=== PATIENT | female | born 1965 | race Hispanic/Latino ===

== ENCOUNTER 2019-06-29 15:53 | Emergency (ER) | payer OTHER ==
[~2019-06-29] VITALS: Ht 165.1 cm; Wt 74.8 kg
--- OUTSIDE RECORDS SUMMARY | 2019-06-29 15:56 | XMS REPORT ---
Author Author [facility] Address Unknown Phone Unavailable Care Team Providers Care Follow Up Manager Name Role Phone Unavailable Unavailable Problems This patient has no known problems. Allergies, Adverse Reactions, Alerts This patient has no known allergies or adverse reactions. Medications This patient has no known medications.
[2019-06-29] MEDS ORDERED: ONDANSETRON HCL 4 MG ORAL DISINTEGRATING TAB ONE (16:26)
[2019-06-29] MEDS ORDERED: ACETAMINOPHEN/CODEINE 300MG - 30MG TAB ONE (16:26)
[2019-06-29] MEDS ORDERED: ACETAMINOPHEN/CODEINE ELIX 120-12 MG/5 ML UDC PO ONE (16:30)
[2019-06-29] MEDS ORDERED: TAMIFLU75 MG PO (17:26)
[2019-06-29] MEDS ORDERED: TYLENOL WITH C1 EACH PO (17:26)
[2019-06-29 17:48] VITALS: BP 134/78
== END 2019-06-29 17:48 | disposition home or self-care (01) ==
LOC: ER 15:53
DX: R50.9 Fever, unspecified (principal); J09.X2 Influenza due to identified novel influenza A virus with other respiratory manifestations
CPT/HCPCS: 87400; 99282; Q0162

== ENCOUNTER 2019-10-23 09:13 | Inpatient (IN) | payer OTHER ==
[~2019-10-23] VITALS: Ht 165.1 cm; Wt 66.4 kg
[~2019-10-23 09:13] MED LIST: TAMIFLU75 MG PO; TYLENOL WITH C1 EACH PO
--- OUTSIDE RECORDS SUMMARY | 2019-10-23 09:15 | XMS REPORT | Continuity of Care Document ---
Author Author [facility] t Organization [facility] Address [address] [place] [address] Phone Unavailable Care Team Providers Care Supervisor Yard Name Role Phone NONSTAFF PCP Unavailable Payers Payer Name Policy Type Policy Number Effective Date Expiration Date S marcia [facility] Ppo [id number] CH I [facility] Problems This patient has no known problems. Allergies, Adverse Reactions, Alerts This patient has no known allergies or adverse reactions. Medications Ordered Medication Name Filled Medication Name Start Date Stop Da te Current Medication? Ordering Clinician Indication Dosage Frequency Signature (SIG) Comments Components Source Acetaminophen With Codeine (Tylenol With Codeine #3 Ta blet) 1 Each Tablet Acetaminophen With Codeine (Tylenol With Codeine #3 Tablet) 1 Each Tablet 2019-06-29 00:00:00 Yes Ambica Sandhir Do 300 Every 6 Hours as needed for Cough [facility] Oseltamivir Phosphate (Tamiflu) 75 Mg Cap Oseltamivir Phosphate (Tamiflu) 75 Mg Cap 2019-06-29 00:00:00 Yes Ambica Sandhir Do 75 Twice A Day [facility] Procedures Procedure Date / Time Performed Performing Clinician [facility] e X-ray of chest, two views 2019-06-29 00:00:[address] [facility] Encounters Start Date/Time End Date/Time Encounter Type Admission Type Attendi [facility] Facility Care Department Encounter ID Source 2019-06-29 15:53:00 2019-06-29 17:48:00 Departed Emergency Room [facility] [id number] [facility] Results Test Description Test Time Test Comments Results Result Comments Source Influenza Virus Types A,B Antigen 2019-06-29 17:30:00 Test Item Influenza Virus Types A,B Antigen (test code = 90792-8) POSITIVE FLU A NEGATIVE H Results called to Dr. Hopper at 1722 on 06/29/19 by Master Louise. RB OK.Lacey berry called to Cherrie Johnston in infection control at 1722 on 06/29/19 by Master Louise.[facility]
[2019-10-23] MEDS ORDERED: SODIUM CHLORIDE 0.9% 1000ML 1,000 ML IV STA (09:42)
[2019-10-23] MEDS ORDERED: CEFEPIME 1GM/NS 0.9% 50 ML 50 ML IV STA (09:42)
--- NOTE | 2019-10-23 10:06 | Emergency Department Note ---
History of Present Illnes History of Present Illness Chief Complaint: COVID PUI History of Present Illness This is a 54 year old female arrives to ED with complaints of cough fever chills loss of taste. Patient states family has been tried going around [place] quite a bit and other family members are sick. Patient states she is concerned that she might have gone cope at 21. Chief Complaint Comment family s/s covid; pt states onset sunday s/s covid. today took tylenol 250mg for fever of 100.3. aaox4. ambulatory. nausea no vomitting. last period one year ago-premenopausal. non smoker. Historian: Patient Arrival Mode: Car Onset (how long ago): day(s) Radiation: non-radiation Severity: mild Duration (how long): day(s) Timing of current episode: constant Progression: worsening Chronicity: new Relieving factors: none Exacerbating factors: none Past Medical/Family History Physician Review I have reviewed the patient's past medical and family history. Any updates have been documented here. Past Medical History Recent Fever: Yes Clinical Suspicion of Infectio: Yes New/Unexplained Change in Ment: No Past Medical History: Chronic Back Pain Other Medical History: back and leg pain takes gabapentin Past Surgical History: None Other Surgery: eyes Social History Smoking Cessation: Never Smoker Alcohol Use: Social Family History Family history of heart diseas: Yes Review of Systems Review of Systems Constitutional: as per HPI, chills, fever EENTM: no symptoms Cardiovascular: no symptoms Respiratory: as per HPI, chest congestion, cough Gastrointestinal: no symptoms Genitourinary: no symptoms Musculoskeletal: no symptoms Neurological: no symptoms Psychological: no symptoms Endocrine: no symptoms Hematological/Lymphatic: no symptoms Review of other systems All other systems reviewed and negative. Physical Exam Related Data Allergies: Coded Allergies: No Known Drug Allergies (Verified Allergy, Mild, 05/08/10) hydrocodone (Verified Allergy, Unknown, 10/23/19) Triage Vital Signs Vital Signs Date Time Temp Pulse Resp B/P (MAP) Pulse Ox O2 Delivery O2 Flow Rate FiO2 10/23/19 09:33 100.9 133 18 122/71 98 Vital signs reviewed: Yes Physical Exam CONSTITUTIONAL Constitutional: well-developed, well-nourished HENT HENT: normocephalic, atraumatic, oropharynx clear/moist, nose normal HENT L/R: left ext ear normal, right ext ear normal EYES Eyes: PERRL, conjunctivae normal NECK Neck: ROM normal PULMONARY Pulmonary: effort normal, respiratory distress (mild tachypnea) CARDIOVASCULAR Cardiovascular: regular rhythm, heart sounds normal, capillary refill normal, normal rate GASTROINTESTINAL Abdominal: soft, nontender, bowel sounds normal GENITOURINARY Genitourinary: exam deferred SKIN Skin: warm, dry MUSCULOSKELETAL Musculoskeletal: ROM normal NEUROLOGICAL Neurological: alert, oriented x 3, no gross motor or sensory deficits PSYCHOLOGICAL Psychological: mood/affect normal, judgement normal Results Laboratory Lab results reviewed: Yes Laboratory comments Laboratory Tests Test 10/23/19 13:13 10/23/19 09:00 10/23/19 08:40 Urine Color Colorless (YELLOW) Urine Clarity Clear (CLEAR) Urine pH 6.5 (5 - 7) Urine Specific [place] 1.010 (1.010-1.025) Urine Protein Negative (NEGATIVE) Urine Glucose (UA) Negative (NEGATIVE) Urine Ketones Negative (NEGATIVE) Urine Blood Negative (NEGATIVE) Urine Nitrite Negative (NEGATIVE) Urine Bilirubin Negative (NEGATIVE) Urine Urobilinogen 0.2 mg/dL (0.2 - 1) Urine Leukocyte Esterase Negative (NEGATIVE) Urine RBC 0-5 /HPF (0-5) Urine WBC None /HPF (0-5) Urine Epithelial Cells Few /LPF (NONE) Urine Renal Epithelial Cells Rare (NONE) Urine Bacteria Rare /HPF (NONE) White Blood Count 5.39 x10e3/uL (4.8-10.8) Red Blood Count 4.40 x10e6/uL (3.6-5.1) Hemoglobin 13.3 g/dL (12.0-16.0) Hematocrit 39.4 % (34.2-44.1) Mean Corpuscular Volume 89.5 fL (81-99) Mean Corpuscular Hemoglobin 30.2 pg (28-32) Mean Corpuscular Hemoglobin Concent 33.8 g/dL (31-35) Red Cell Distribution Width 12.7 % (11.7-14.4) Platelet Count 121 x10e3/uL (140-360) Neutrophils (%) (Auto) 71.0 % (38.7-80.0) Lymphocytes (%) (Auto) 6.3 % (18.0-39.1) Monocytes (%) (Auto) 21.9 % (4.4-11.3) Eosinophils (%) (Auto) 0.0 % (0.0-6.0) Basophils (%) (Auto) 0.6 % (0.0-1.0) Neutrophils # (Auto) 3.8 (2.1-6.9) Lymphocytes # (Auto) 0.3 (1.0-3.2) Monocytes # (Auto) 1.2 (0.2-0.8) Eosinophils # (Auto) 0.0 (0.0-0.4) Basophils # (Auto) 0.0 (0.0-0.1) Absolute Immature Granulocyte (auto 0.01 x10e3/uL (0-0.1) Differential Total Cells Counted 100 Neutrophils % (Manual) 66 % (40-74) Band Neutrophils % 4 % Lymphocytes % (Manual) 10 % (19-48) Monocytes % (Manual) 20 % (3.4-9.0) Platelet Estimate Slightly decreased Platelet Morphology Comment Normal Red Cell Morphology Comment Normal Activated Partial Thromboplast Time 28.3 seconds (23.8-35.5) Sodium Level 139 mmol/L (136-145) Potassium Level 3.5 mmol/L (3.5-5.1) Chloride Level 101 mmol/L (98-107) Carbon Dioxide Level 26 mmol/L (22-29) Anion Gap 15.5 mmol/L (8-16) Blood Urea Nitrogen 7 mg/dL (7-26) Creatinine 0.71 mg/dL (0.57-1.11) Estimat Glomerular Filtration Rate > 60 ML/MIN (60-) BUN/Creatinine Ratio 10 (6-25) Glucose Level 102 mg/dL (74-118) Lactic Acid Level 0.6 mmol/L (0.5-2.0) Calcium Level 9.5 mg/dL (8.4-10.2) Total Bilirubin 0.3 mg/dL (0.2-1.2) Aspartate Amino Transf (AST/SGOT) 38 IU/L (5-34) Alanine Aminotransferase (ALT/SGPT) 37 IU/L (0-55) Alkaline Phosphatase 97 IU/L (40-150) Creatine Kinase 45 IU/L (29-168) Creatine Kinase MB 0.30 ng/mL (0-5.0) Troponin I 0.008 ng/mL (0-0.300) Total Protein 7.3 g/dL (6.5-8.1) Albumin 4.3 g/dL (3.5-5.0) Globulin 3.0 g/dL (2.3-3.5) Albumin/Globulin Ratio 1.4 (0.8-2.0) Coronavirus (PCR) Detected (NOTDETECTED) Imaging Imaging results reviewed: Yes Impressions FINDINGS: The trachea is midline. The lungs are symmetrically expanded without evidence for large focal consolidation, pneumothorax, or significant pleural effusion. The cardiomediastinal silhouette and pulmonary vasculature are within normal limits. No acute osseous abnormality is identified. The surrounding soft tissues are unremarkable. Procedures 12 Lead ECG Interpretation Turbine Subassembler: Interpreted by ED physician Prior INCENDIARIES SUPERVISOR tracings: reviewed Rhythm: sinus tachycardia QRS axis: right ST segments normal: Yes T waves normal: Yes Critical Care Time Total Critical Care Time (min): 35 Critcal care necessary due to: respiratory failure Subsequent provider I assumed direction of critical care for this patient from another provider of my specialty. Assessment & Plan Assessment & Plan Final Impression: (1) COVID-19 (2) DYSPNEA, UNSPECIFIED Assessment & Plan CBC, CMP Chest x-ray Type and screen for possible plasma phoresis Admission for respiratory monitoring Pulmonary consult infectious disease consult Depart Disposition: ADMITTED Last Vital Signs Date Time Temp Pulse Resp B/P (MAP) Pulse Ox O2 Delivery O2 Flow Rate FiO2 10/23/19 09:33 100.9 133 18 122/71 98 Home Meds Active Scripts Acetaminophen With Codeine (TYLENOL WITH CODEINE #3 TABLET) 1 Each Tablet, 300 MG PO Q6HR PRN for COUGH, #12 TAB Prov:LETA VALDOVINOS, DO 06/29/19 Oseltamivir Phosphate (TAMIFLU) 75 Mg Cap, 75 MG PO BID for 5 Days, CAP Prov:BRIGETTERLETA, DO 06/29/19 Medications in the ED Sodium Chloride 1,000 ml @ 0 mls/hr Q0M STAT IV ; Start 10/23/19 at 09:42; Stop 10/23/19 at 09:44; Status DC Cefepime HCl 50 ml @ 50 mls/hr ONCE STAT IV ; Start 10/23/19 at 09:42; Stop 10/23/19 at 10:41; Status UNV Acetaminophen 650 mg ONCE ONCE PO ; Start 10/23/19 at 10:00; Stop 10/23/19 at 10:01; Status UNV LETA VALDOVINOS DO Oct 23, 2019 10:06
[2019-10-23] MEDS ORDERED: ACETAMINOPHEN 325 MG TAB PO ONE (10:15)
[2019-10-23 10:37] LABS: BASOPHILS % 0.6 % (0.0-1.0); HEMATOCRIT 39.4 % (34.2-44.1); HEMOGLOBIN 13.3 g/dL (12.0-16.0); LYMPHOCYTES # (AUTO) 0.3 (1.0-3.2); LYMPHOCYTES % 6.3 % (18.0-39.1); MEAN CORPUSCULAR HEMOGLOBIN 30.2 pg (28-32); MEAN CORPUSCULAR HGB CONC 33.8 g/dL (31-35); MEAN CORPUSCULAR VOLUME 89.5 fL (81-99); MONOCYTES # (AUTO) 1.2 (0.2-0.8); MONOCYTES % 21.9 % (4.4-11.3); NEUTROPHILS # (AUTO) 3.8 (2.1-6.9); PLATELET COUNT 121 x10e3/uL (140-360); RED CELL DISTRIBUTION WIDTH 12.7 % (11.7-14.4)
[2019-10-23 10:42] LABS: ALANINE AMINOTRANSFERASE 37 IU/L (0-55); ALBUMIN 4.3 g/dL (3.5-5.0); ALBUMIN/GLOBULIN RATIO 1.4 (0.8-2.0); ANION GAP 15.5 mmol/L (8-16); BLOOD UREA NITROGEN 7 mg/dL (7-26); BUN/CREATININE RATIO 10 (6-25); CALCIUM 9.5 mg/dL (8.4-10.2); CARBON DIOXIDE 26 mmol/L (22-29); CHLORIDE 101 mmol/L (98-107); CREATINE KINASE 45 IU/L (29-168); CREATININE, SERUM 0.71 mg/dL (0.57-1.11); EST GLOMERULAR FILTRATION RATE > 60 ML/MIN (60-); GLUCOSE 102 mg/dL (74-118); POTASSIUM 3.5 mmol/L (3.5-5.1); SODIUM 139 mmol/L (136-145)
--- NOTE | 2019-10-23 10:53 | Diagnostic Imaging Report ---
EXAM: CHEST SINGLE (PORTABLE) DATE: 10/23/2019 9:48 AM INDICATION: Cough, fever COMPARISON: None FINDINGS: The trachea is midline. The lungs are symmetrically expanded without evidence for large focal consolidation, pneumothorax, or significant pleural effusion. The cardiomediastinal silhouette and pulmonary vasculature are within normal limits. No acute osseous abnormality is identified. The surrounding soft tissues are unremarkable. IMPRESSION: No acute cardiopulmonary process identified. Signed by: Dr. Dada Del Valle MD on 10/23/2019 10:50 AM
[2019-10-23 10:58] LABS: ALKALINE PHOSPHATASE 97 IU/L (40-150)
[2019-10-23 12:17] LABS: BAND NEUTROPHILS % (MANUAL) 4 %; LYMPHOCYTES % (MANUAL) 10 % (19-48); MONOCYTES % (MANUAL) 20 % (3.4-9.0); NEUTROPHILS % (MANUAL) 66 % (40-74)
[2019-10-23 12:18] LABS: PLATELET ESTIMATE SLIGHTLY DECREASED; PLATELET MORPHOLOGY COMMENT NORMAL; RBC MORPHOLOGY COMMENT NORMAL
--- OUTSIDE RECORDS SUMMARY | 2019-10-23 12:38 | XMS REPORT | Continuity of Care Document ---
Author Author [facility] t Organization [facility] Address [address] [place] [address] Phone Unavailable Care Team Providers Care Welder Oxyhydrogen Name Role Phone NONSTAFF PCP Unavailable Carlyle VALDOVINOS Attphys Unavailable Payers Payer Name Policy Type Policy Number Effective Date Expiration Date [facility] Ppo [id number] I [facility] Problems This patient has no known problems. [...] Tablet) 1 Each Tablet 2019-06-29 00:00:00 Yes Ambtyrone Footer Do 300 Every 6 Hours as needed for Cough [facility] Oseltamivir Phosphate (Tamiflu) 75 Mg Cap Oseltamivir Phosphate (Tamiflu) 75 Mg Cap 2019-06-29 00:00:00 Yes Ambtyrone Rodríguezhir Do 75 Twice A Day [facility] Procedures Procedure Date / Time Performed Performing Clinician [facility] e X-ray of chest, two views 2019-06-29 00:00:00 CARLO JADE [facility] Encounters Start Date/Time End Date/Time Encounter Type Admission Type Attendi [facility] Facility Care Department Encounter ID Source 2019-06-29 15:53:00 2019-06-29 17:48:00 Departed Emergency Room [facility] [id number] [facility] Results Test Description Test Time Test Comments Results Result Comments Source CHEST SINGLE (PORTABLE) 2019-10-23 10:50:00 [facility] [address] [address] Patient Name: CYNDIE MALDONADO MR #: [id number] : 1965 Age/Sex: 54/F Req #: [id number] Adm Physician: Ordered by: LETA VALDOVINOS DO Report #: [id number] Location: ER Room/Bed: Procedure: [id number] DX/CHEST SINGLE (PORTABLE) Exam Date: Exam Time: REPORT STATUS: Signed EXAM: CHEST SINGLE (PORTABLE) DATE: 10/23/2019 9:48 AM INDICATION: Cough, fever COMPARISON: None FINDINGS: The trachea is midline. The lungs are symmetrically expanded without evidence for large focal consolidation, pneumothorax, or significant pleural effusion. The cardiomediastinal silhouette and pulmonary vasculature are within normal limits. No acute osseous abnormality is identified. The surrounding soft tissues are unremarkable. IMPRESSION: No acute cardiopulmonary process identified. Signed by: Dr. Dada Del Valle MD on 10/23/2019 10:50 AM Dictated By: DADA DEL VALLE MD 1050 Transcribed By: COLTON on 10/23/19 1050 COPY TO: LETA VALDOVINOS DO Influenza Virus Types A,B Antigen 2019-06-29 17:30:00 Test Item Influenza Virus Types A,B Antigen (test code = 05314-7) POSITIVE FLU A NEGATIVE H Results called to Dr. Valdovinos at 1722 on 06/29/19 by Master Louise. MITALI berry called to Cherrie Johnston in infection control at 1722 on 06/29/19 by Master Louise.[facility]
[2019-10-23 13:55] LABS: CLARITY,URINE CLEAR (CLEAR); COLOR,URINE COLORLESS (YELLOW); LEUKOCYTE ESTERASE ,URINE NEGATIVE (NEGATIVE)
[2019-10-23 13:56] LABS: BILIRUBIN,URINE NEGATIVE (NEGATIVE); KETONES,URINE NEGATIVE (NEGATIVE); NITRITE,URINE NEGATIVE (NEGATIVE); PROTEIN,URINE DIPSTICK NEGATIVE (NEGATIVE); URINE UROBILINOGEN 0.2 mg/dL (0.2 - 1)
[2019-10-23 14:16] LABS: BACTERIA,URINE RARE /HPF; EPITHELIAL CELLS,URINE FEW /LPF; RBC,URINE 0-5 /HPF (0-5); RENAL EPITHELIAL CELLS,URINE RARE
--- NOTE | 2019-10-23 15:51 | NUR ---
meals and coke
--- NOTE | 2019-10-23 16:03 | NUR ---
seen by dr iqbal
[2019-10-23] MEDS ORDERED: ONDANSETRON HCL INJ 2MG/ML 2ML 2 MG/ML VIAL IV PRN (16:15)
[2019-10-23] MEDS ORDERED: ENOXAPARIN SOD INJ 40 MG/0.4 ML SYR SC SCH (17:00)
--- NOTE | 2019-10-23 17:10 | Consultation ---
DATE OF CONSULTATION: CHIEF COMPLAINT: Cough and malaise. HISTORY OF PRESENT ILLNESS: The patient is a 54-year-old woman. She has no prior cardiac or pulmonary history. Apparently, she had a cough for several days. She felt sicker today. She had malaise and possible fevers. She denies difficulty breathing. PAST MEDICAL HISTORY: 1. No prior history of asthma or COPD. 2. No prior history of cardiac disease. SURGICAL HISTORY: Noncontributory. ALLERGIES: THE PATIENT IS ALLERGIC TO HYDROCODONE. FAMILY HISTORY: Family history is noncontributory. REVIEW OF SYSTEMS: The patient is afebrile. There were possible fevers earlier today. HEENT: Shows no facial swelling or erythema. CARDIAC: Reveals regular rate and rhythm with normal S1 and S2. LUNGS: Auscultation of lungs reveals rhonchorous breath sounds bilaterally. There is no wheezing. ABDOMEN: Soft and nontender. There is no rebound or guarding. EXTREMITIES: Shows no leg edema or calf tenderness. There is no cyanosis or clubbing. SKIN: Shows no rashes. NEUROLOGICAL: Shows no focal abnormalities. She has no headache. She has no chest pain. She may have some dyspnea. She has no abdominal pain. She has no nausea or vomiting. She has no leg edema. PHYSICAL EXAMINATION: VITAL SIGNS: The patient is afebrile. T-max is 100.8. The pulse is 108. Respiratory rate is 18 and saturation is 97%. HEENT: Shows no facial swelling or erythema. CARDIAC: Reveals regular rate and rhythm with normal S1 and S2. LUNGS: Auscultation of lungs reveals crackles at the bases. There is no wheezing. ABDOMEN: Soft nontender. There is no rebound or guarding. EXTREMITIES: Shows no leg edema or calf tenderness. There is no cyanosis or clubbing. SKIN: Shows no rashes. NEUROLOGICAL: Shows no focal abnormalities. LABORATORY DATA: White blood cell count is 5.4 and the hemoglobin is 13.3. The platelet count is 121. The BUN to creatinine ratio is 7 to 0.7. The other electrolytes are within normal limits. RADIOGRAPHIC DATA: Chest x-ray shows no acute disease. IMPRESSION: 1. Viral pneumonia. 2. COVID-19 infection. 3. Tachycardia. 4. Hypokalemia. PLAN: 1. Judicious use of IV fluids. 2. Zithromax. 3. Antipyretics and end dictation. MD VIVIAN Paige/NIKITA /[id number]
--- NOTE | 2019-10-23 17:54 | NUR ---
[id number] COVID 19 TACHYCARDIA CHECK ECHO EKG LOVONOX O2
[2019-10-23 17:55] VITALS: BP 130/76
[2019-10-23] MEDS ORDERED: ASPIRIN 81 MG CHEW TAB PO ONE (18:00)
--- NOTE | 2019-10-23 19:05 | Progress Note ---
DATE: REASON FOR CONSULT: Pneumonia. HISTORY OF PRESENT ILLNESS: Ms. Bailey is a very pleasant 54-year-old Tristanian female, no past medical history, no heart disease, lung disease or asthma, comes in with one day of fever, chills, not feeling well, and cough. The patient came to the emergency room. Her COVID-19 was positive. The patient is being admitted. The patient when I saw her she was alert, oriented, and comfortable, really has no complaint when I saw her. PHYSICAL EXAMINATION: GENERAL: She is currently alert, oriented, not in acute distress. VITAL SIGNS: Temperature 100.9, heart rate 133, respiration of 18, and blood pressure 120/71. HEENT: She is not icteric. NECK: Supple. CHEST: Few crackles bilateral. HEART: S1, S2. No S3, S4, or murmur. ABDOMEN: Soft. Bowel sounds present. EXTREMITIES: No edema. SKIN: No rash. Her chest x-ray was negative. IMPRESSION: 1. COVID-19 on admission. 2. Tachycardia. Recommend to obtain an echocardiogram. We will get cardiac enzyme. We would recommend to put her on Lovenox in the meantime. We will give her vitamin C and zinc supplement. Reassess in the morning. MD MIRZA Vasquez/NIKITA /[id number]
[2019-10-23 19:11] LABS: FREE THYROXINE INDEX 2.1556 (1.4-3.8); THYROID STIMULATING HORMONE 0.215 uIU/mL (0.350-4.940)
[2019-10-23 19:13] LABS: CREATINE KINASE MB 0.1 ng/mL (0-5.0)
--- NOTE | 2019-10-23 19:37 | NUR ---
received pt in bed awake a/o x 3. Pt c/o headache, will med per JUL. No s/sx of acute distress. Pt bed in low position call light and personal items within reach. Will cont to sun.
--- NOTE | 2019-10-23 19:38 | NUR ---
Report and care hand off given to Marcia.
[2019-10-23 20:00] VITALS: BP 146/82
[2019-10-23] MEDS: ACETAMINOPHEN 325 MG TAB PO PRN (20:20)
--- NOTE | 2019-10-23 21:51 | History and Physical ---
PRIMARY CARE DOCTOR: Dr. Mercedes Ramon. CHIEF COMPLAINT: Fever and chills. HISTORY OF PRESENT ILLNESS: This is a 54-year-old healthy woman, whose daughter is sick, also recently visited other family members in [place], went to [employer] 4 days ago. The patient has tingling throat and some nonsignificant cough, however, last night began to have very heavy fever, chill and some muscle aches. Cough is still not too bad. This morning that shows is persistent. The patient also has some subjective shortness of breath, therefore came to the emergency room. Otherwise, denies chest pain. No nausea. No diarrhea. No abdominal pain. The patient is urinating okay. PAST MEDICAL AND SURGICAL HISTORY: Chronic back pain. MEDICATIONS: Please see medication reconciliation form. ALLERGIES: HYDROCODONE. SOCIAL HISTORY: She does not smoke. FAMILY HISTORY: Positive for heart disease. REVIEW OF SYSTEMS: A 10-point review of systems obtained, nothing else is significant other than what is stated in HPI. PHYSICAL EXAMINATION: VITAL SIGNS: T-max 100.9. Initial pulse was 133, currently still 117. Blood pressure 115/80, respiratory rate anywhere from 16-18, not on any oxygen. GENERAL: No acute distress. SKIN: No rash. HEENT: Anicteric. Oropharynx is clear. LUNGS: Clear. HEART: Tachycardic. Normal S1, S2. ABDOMEN: Soft, nondistended. NEUROLOGIC: Alert and oriented x3. Cranial nerves II through XII grossly intact. PSYCHIATRIC: No depression. MUSCULOSKELETAL: Painless range of motion in joints. LABORATORY DATA: Creatinine 0.7. White count 5, hemoglobin 13, platelet count 121. COVID test is positive. Chest x-ray is negative. EKG, sinus tach, nonspecific. ASSESSMENT AND PLAN: 1. Coronavirus viral syndrome with thrombocytopenia and significant tachycardia despite fluid bolus. We will consult Pulmonary and Infectious Disease. Empiric antibiotics started. We will monitor her thrombocytopenia. 2. GI and DVT prophylaxes, on Lovenox. I have updated her primary care doctor about this hospitalization. Yiching MD DESTINEY Vasquez/NIKITA /[id number] cc: [facility]
[2019-10-23 22:06] VITALS: BP 146/82
[2019-10-24] VITALS: BP 109/72
[2019-10-24 04:54] VITALS: BP 109/79
[2019-10-24] MEDS: ACETAMINOPHEN 325 MG TAB PO PRN (05:53)
[2019-10-24 06:11] LABS: BASOPHILS % 0.2 % (0.0-1.0); HEMATOCRIT 38.7 % (34.2-44.1); HEMOGLOBIN 12.8 g/dL (12.0-16.0); LYMPHOCYTES % 22.9 % (18.0-39.1); MEAN CORPUSCULAR HEMOGLOBIN 31.2 pg (28-32); MEAN CORPUSCULAR HGB CONC 33.1 g/dL (31-35); MEAN CORPUSCULAR VOLUME 94.4 fL (81-99); MONOCYTES # (AUTO) 0.8 (0.2-0.8); MONOCYTES % 20.2 % (4.4-11.3); NEUTROPHILS # (AUTO) 2.3 (2.1-6.9); NEUTROPHILS % 56.5 % (38.7-80.0); PLATELET COUNT 108 x10e3/uL (140-360)
--- NOTE | 2019-10-24 06:27 | NUR ---
Pt resting in bed, states some relief with the tylenol. AM labs drawn. No s/sx of acute distress noted. Bed in low position, call light and personal items within reach.
[2019-10-24 06:51] LABS: ANION GAP 11.5 mmol/L (8-16); BLOOD UREA NITROGEN 9 mg/dL (7-26); BUN/CREATININE RATIO 13 (6-25); CALCIUM 8.8 mg/dL (8.4-10.2); CARBON DIOXIDE 28 mmol/L (22-29); CHLORIDE 105 mmol/L (98-107); CREATININE, SERUM 0.69 mg/dL (0.57-1.11); EST GLOMERULAR FILTRATION RATE > 60 ML/MIN (60-); GLUCOSE 80 mg/dL (74-118); POTASSIUM 3.5 mmol/L (3.5-5.1); SODIUM 141 mmol/L (136-145)
--- NOTE | 2019-10-24 07:03 | NUR ---
AWAKE AND ALERT. RESTING IN BED QUIETLY. NO DISTRESS NOTED. CALL LIGHT IN REACH. SIDE RAILS UP X2. BED LOW AND LOCKED.
[2019-10-24 07:44] VITALS: BP 105/73
[2019-10-24 12:00] VITALS: BP 110/71
[2019-10-24 12:10] LABS: BAND NEUTROPHILS % (MANUAL) 3 %; LYMPHOCYTES % (MANUAL) 8 % (19-48); MONOCYTES % (MANUAL) 19 % (3.4-9.0); NEUTROPHILS % (MANUAL) 70 % (40-74); PLATELET ESTIMATE SLIGHTLY DECREASED; PLATELET MORPHOLOGY COMMENT NORMAL
--- NOTE | 2019-10-24 14:39 | Progress Note ---
DATE: SUBJECTIVE: Leo is lying in bed comfortably. There are no complaints. REVIEW OF SYSTEMS: HEENT: Negative. PULMONARY: Negative. CARDIAC: Negative. PHYSICAL EXAMINATION: GENERAL: She is currently alert, oriented, does not seem to be in acute distress. VITAL SIGNS: Stable, currently afebrile. HEENT: She is not icteric. NECK: Supple. CHEST: Clear bilateral. Heart: S1, S2. No S3, S4, or murmur. ABDOMEN: Soft. Bowel sounds present. No tenderness. EXTREMITIES: No edema. SKIN: No rash. VITAL SIGNS: Her temperature is 99, her heart rate is 107, respirations 18. LABORATORY DATA: Blood cultures are negative. IMPRESSION: COVID-19 present on admission, clinically doing better. She has no complaints. We will discharge home with azithromycin and Keflex. Tylenol p.r.n. Follow up in 2 weeks. Self-isolation for 2 weeks. MD MIRZA Vasquez/NIKITA /[id number]
[2019-10-24 15:59] VITALS: BP 115/80
[2019-10-24] MEDS ORDERED: AZITHROMYCIN250 MG PO (16:05)
[2019-10-24] MEDS ORDERED: KEFLEX500 MG PO (16:06)
--- NOTE | 2019-10-25 00:41 | Discharge Summary ---
PRIMARY CARE DOCTOR: Dr. Mercedes Ramon. FINAL DIAGNOSIS: COVID-19 infection. SECONDARY DIAGNOSIS: Tachycardia, resolved. CONSULTANTS: 1. Dr. Craven, Infectious Disease. 2. Dr. Esparza, Pulmonary. PROCEDURES/STUDIES PERFORMED: None. HISTORY: Per H and P. HOSPITAL COURSE: The patient was admitted. The patient was monitored overnight. The patient continued to be not oxygen dependent. The patient was evaluated by both of stock saw operator and Infectious Disease and was deemed stable for going home. The patient will be going home on Keflex and Z-Zhang. The patient was seen and examined today. The patient will follow up with PCP in one week. The patient will follow up with Dr. Craven in two weeks. The patient understands that she needs to self-isolate for two weeks. I have updated her primary care doctor about this hospitalization as well. It took 32 minutes total to discharge this patient. CONDITION ON DISCHARGE: Improved. DISCHARGE MEDICATIONS: Please see medication reconciliation form. MD DESTINEY Donahue/NIKITA /[id number] cc: [facility]
== END 2019-10-24 16:39 | disposition home or self-care (01) | DRG 177 ==
LOC: ER 09:13 → ERHOLD 10:56 → IMCU 17:39
PROVIDERS: ADMIT Internal Medicine; ATTEND Internal Medicine
DX: U07.1 COVID-19 (principal); J12.89 Other viral pneumonia; R00.0 Tachycardia, unspecified; G89.29 Other chronic pain; D69.6 Thrombocytopenia, unspecified
CPT/HCPCS: 36415; 71045; 80048; 80053; 81001; 82550; 82553; 83605; 84436; 84443; 84479; 84484; 85025; 85730; 87040; 87635; 93005; 99284; J0692; J1650; J7030

== ENCOUNTER 2019-10-26 13:14 | Emergency (ER) | payer OTHER ==
[~2019-10-26] VITALS: Ht 165.1 cm; Wt 66.2 kg
[~2019-10-26 13:14] MED LIST changes: +AZITHROMYCIN250 MG PO; +KEFLEX500 MG PO
--- OUTSIDE RECORDS SUMMARY | 2019-10-26 13:16 | XMS REPORT | Continuity of Care Document ---
Author Author [facility] t Organization [facility] Address [address] [place] [phone] Phone Unavailable Care Team Providers Care Local Hazmat Driver Name Role Phone VUCHONG PCP Aravind HAN Attphys Unavailable Aravind HAN Admphys Unavailable Payers Payer Name Policy Type Policy Number Effective Date Expiration Date S marcia [facility] Ppo [id number] 2019 00:00:00 [facility] Cdc Review Covid19 [id number] [facility] Problems This patient has no known problems. Allergies, Adverse Reactions, Alerts Allergy Name Allergy Type Status Severity Reaction(s) Onset Date Inacti ve Date Treating Clinician Comments Source Hydrocodone Allergy to substance Active 2019-10-23 00:00:00 [facility] Social History Social Habit Start Date Stop Date Quantity Comments Source Sex Assigned At 1965 00:00:00 1965 00:[birth year]:00 Female [facility] Medications Ordered Medication Name Filled Medication Name Start Date Stop Da te Current Medication? Ordering Clinician Indication Dosage Frequency Signature (SIG) Comments Components Source Acetaminophen With Codeine (Tylenol With Codeine #3 Ta blet) 1 Each TABLET Acetaminophen With Codeine (Tylenol With Codeine #3 Tablet) 1 Each TABLET 2019-06-29 16:26:00 Yes 300 Every 6 Hours as n eeded for Cough [facility] Oseltamivir Phosphate (Tamiflu) 75 Mg CAP Oseltamivir Phosphate (Tamiflu) 75 Mg CAP 2019-06-29 16:26:00 2019-10-24 00:00:00 No 75 Twic e A Day [facility] Azithromycin (Z-Zhang) 250 Mg TABLET Azithromycin (Z-Zhang) 250 Mg TABLET Yes 250 Use As Directed [facility] Cephalexin Monohydrate (Keflex) 500 Mg CAPSULE Cephale alan Monohydrate (Keflex) 500 Mg CAPSULE Yes 500 Three Times A Day [facility] Vital Signs Vital Name Observation Time Observation Value Comments Source Body Temperature 2019-10-24 15:59:00 98.4 [degF] [facility] Weight 2019-10-23 17:55:00 146.44 [lb_av] [facility] BMI (Body Mass Index) 2019-10-23 17:55:00 24.4 kg/m2 [facility] Procedures This patient has no known procedures. Plan of Care Planned Activity Planned Date Details Comments Source Instructions COVID-19: 08/04/2019 [facility] Instructions Infection Control [facility] Encounters Start Date/Time End Date/Time En[facility] ID Source 2019-06-29 14:53:00 2019-06-29 16:48:00 Departed Emergency Room [facility] [id number] [facility] Results Test Description Test Time Test Comments Results Result Comments Source Blood leukocytes automated count (number/volume) 2019-10-24 05:13:00 Test Item White Blood Count (test code = 6690-2) 4.15 4.8-10.8 [facility] automated count (number/volume)2019-10-24 05:13:00* Test Item Value Reference Range Interpretation Comments Red Blood Count (test code = 789-8) 4.10 3.6-5.1 [facility] hemoglobin measurement (moles/volume)2019-10-24 05:13:00* Test Item Value Reference Range Interpretation Comments Hemoglobin (test code = 18376-0) 12.8 12.0-16.0 [facility] HospitalAutomated blood hematocrit (volume fraction)2019-10-24 05:13:00* Test Item Value Reference Range Interpretation Comments Hematocrit (test code = 4544-3) 38.7 34.2-44.1 [facility] HospitalAutomated erythrocyte mean corpuscular mztyyd1766-34-62 05:13:00* Test Item Value Reference Range Interpretation Comments Mean Corpuscular Volume (test code = 787-2) 94.4 81-99 [facility] HospitalAutomated erythrocyte mean corpuscular hemoglobin (mass per erythrocyte)2019-10-24 05:13:00* Test Item Value Reference Range Interpretation Comments Mean Corpuscular Hemoglobin (test code = 785-6) 31.2 28-32 [facility] HospitalAutomated erythrocyte mean corpuscular hemoglobin concentration measurement (mass/volume)2019-10-24 05:13:00* Test Item Value Reference Range Interpretation Comments Mean Corpuscular Hemoglobin Concent (test code = 786-4) 33.1 31-35 [facility] HospitalRDW LjjSw-Ojk9251-60-05 05:13:00* Test Item Value Reference Range Interpretation Comments Red Cell Distribution Width (test code = 21951-0) 13.0 11.7 -14.4 [facility] HospitalAutcare[facility]ed [facility] platelet count (count/volume)2019-10-24 05:13:00* Test Item Value Reference Range Interpretation Comments Platelet Count (test code = 777-3) 108 140-360 [facility] HospitalAutcarepartners rehabilitation hospitaled blood segmented neutrophil count as percentage of total cmsqhoowtb6814-30-61 05:13:00* Test Item Value Reference Range Interpretation Comments Neutrophils (%) (Auto) (test code = 47383-7) 56.5 38.7-80.0 [facility] HospitalAutomated blood lymphocyte count as percentage ot total udkxbrgxwt1625-34-05 05:13:00* Test Item Value Reference Range Interpretation Comments Lymphocytes (%) (Auto) (test code = 736-9) 22.9 18.0-39.1 [facility] HospitalAutomated blood monocyte count as percentage of total lrrjyeooar1924-04-53 05:13:00* Test Item Value Reference Range Interpretation Comments Monocytes (%) (Auto) (test code = 5905-5) 20.2 4.4-11.3 [facility] HospitalAutomated blood eosinophil count as percentage of total mnsavfsizf1589-77-50 05:13:00* Test Item Value Reference Range Interpretation Comments Eosinophils (%) (Auto) (test code = 713-8) 0.0 0.0-6.0 [facility] HospitalAutomated blood basophil count as percentage of total kpmazkqcep7441-07-72 05:13:00* Test Item Value Reference Range Interpretation Comments Basophils (%) (Auto) (test code = 706-2) 0.2 0.0-1.0 [facility] HospitalFluoroscopic procedure less than one hour bmbyolxe7645-32-47 05:13:00* Test Item Value Reference Range Interpretation Comments IM GRANULOCYTES % (test code = IM GRANULOCYTES %) 0.2 0.0- 1.0 [facility] HospitalAutomated blood neutrophil count 2019-10-24 05:13:00* Test Item Value Reference Range Interpretation Comments Neutrophils # (Auto) (test code = 751-8) 2.3 2.1-6.9 [facility] HospitalBlood lymphocytes count (number/volume) 2019-10-24 05:13:00* Test Item Value Reference Range Interpretation Comments Lymphocytes # (Auto) (test code = 65473-9) 1.0 1.0-3.2 [facility] HospitalBlood monocytes automated count (number/volume)2019-10-24 05:13:00* Test Item Value Reference Range Interpretation Comments Monocytes # (Auto) (test code = 742-7) 0.8 0.2-0.8 [facility] HospitalAutomated blood eosinophil count 2019-10-24 05:13:00* Test Item Value Reference Range Interpretation Comments Eosinophils # (Auto) (test code = 711-2) 0.0 0.0-0.4 [facility] HospitalAutomated blood basophil count (count/volume)2019-10-24 05:13:00* Test Item Value Reference Range Interpretation Comments Basophils # (Auto) (test code = 704-7) 0.0 0.0-0.1 [facility] HospitalFluoroscopic procedure less than one hour ylkuygtb5458-27-43 05:13:00* Test Item Value Reference Range Interpretation Comments Absolute Immature Granulocyte (auto (hair t code = Absolute Immature Granulocyte (auto) 0.01 0-0.1 [facility] HospitalFluoroscopic procedure less than one hour tzvtakgn6280-35-11 05:13:00* Test Item Value Reference Range Interpretation Comments Differential Total Cells Counted (test code = [place] tial Total Cells Counted) 100 [facility] HospitalManual blood neutrophils/100 leukocytes 2019-10-24 05:13:00* Test Item Value Reference Range Interpretation Comments Neutrophils % (Manual) (test code = 92249-9) 70 40-[address] [facility] blood band neutrophils form/100 ypnzxmpeix1731-40-35 05:13:00* Test Item Value Reference Range Interpretation Comments Band Neutrophils % (test code = 764-1) [address] [facility] blood lymphocytes/100 leukocytes 2019-10-24 05:13:00* Test Item Value Reference Range Interpretation Comments Lymphocytes % (Manual) (test code = 737-7) 8 19-[address] [facility] blood monocytes/100 leukocytes 2019-10-24 05:13:00* Test Item Value Reference Range Interpretation Comments Monocytes % (Manual) (test code = 744-3) 19 3.4-9.0 [facility] HospitalBlood platelets count by estimate (number/volume)2019-10-24 05:13:00* Test Item Value Reference Range Interpretation Comments Platelet Estimate (test code = 73823-0) SLIGHTLY DECREASED [facility] HospitalPlatelet zzvnhpcmab2576-37-02 05:13:00* Test Item Value Reference Range Interpretation Comments Platelet Morphology Comment (test code = 92141-5) NORMAL [facility], TXerum or plasma sodium measurement (moles/volume)2019-10-24 05:13:00* Test Item Value Reference Range Interpretation Comments Sodium Level (test code = 2951-2) 141 136-[address] [facility], TXerum or plasma potassium measurement (moles/volume)2019-10-24 05:13:00* Test Item Value Reference Range Interpretation Comments Potassium Level (test code = 2823-3) 3.5 3.5-5.[address] [facility], TXerum or plasma chloride measurement (moles/volume)2019-10-24 05:13:00* Test Item Value Reference Range Interpretation Comments Chloride Level (test code = 2075-0) 105 98-[address] [facility], TXerum or plasma carbon dioxide, total measurement (moles/volume)2019-10-24 05:13:00* Test Item Value Reference Range Interpretation Comments Carbon Dioxide Level (test code = 2028-9) 28 22-[address] [facility], TXerum or plasma anion rlh6759-72-84 05:13:00* Test Item Value Reference Range Interpretation Comments Anion Gap (test code = 65092-4) 11.5 8-[address] [facility], TXerum or plasma urea nitrogen measurement (mass/volume)2019-10-24 05:13:00* Test Item Value Reference Range Interpretation Comments Blood Urea Nitrogen (test code = 3094-0) 9 7-[address] [facility], TXerum or plasma creatinine measurement (mass/volume)2019-10-24 05:13:00* Test Item Value Reference Range Interpretation Comments Creatinine (test code = 2160-0) 0.69 0.57-1.[address] [facility], TXerum or plasma urea nitrogen/creatinine mass mgxqq8088-57-48 05:13:00* Test Item Value Reference Range Interpretation Comments BUN/Creatinine Ratio (test code = 3097-3) 13 6-25 [facility] HospitalEstimated glomerular filtration rate (GFR) pdirpzfryrnoe7999-69-92 05:13:00* Test Item Value Reference Range Interpretation Comments Estimat Glomerular Filtration Rate (test code = 927018838) > 60 >60 Ranges were taken from the National Kidney Disease Education Program and the [facility] Kidney Foundation literature.Reference ranges:60 or greater: Degplv49-62 ( for 3 consecutive months): Chronic kidney disease 15 or less: Kidney failureDriscoll Children's HospitalGlucose tolngttjosb9536-54-18 05:13:00* Test Item Value Reference Range Interpretation Comments Glucose Level (test code = XWD1208) 80 74-[address] [facility], TXerum or plasma calcium measurement (mass/volume)2019-10-24 05:13:00* Test Item Value Reference Range Interpretation Comments Calcium Level (test code = 12830-1) 8.8 8.4-10.[address] [facility], TXerum or plasma creatine kinase measurement (enzymatic activity/volume)2019-10-23 18:30:00* Test Item Value Reference Range Interpretation Comments Creatine Kinase (test code = 2157-6) 40 29-[address] [facility], TXerum or plasma creatine kinase MB measurement (mass/volume)2019-10-23 18:30:00* Test Item Value Reference Range Interpretation Comments Creatine Kinase MB (test code = 94195-8) 0.10 0-5.0 [facility] HospitalTroponin I measurement by highly sensitive enzyme hjncrueuabd3926-40-26 18:30:00* Test Item Value Reference Range Interpretation Comments Troponin I (test code = 62854-2) 0.005 0-0.300 [facility] HospitalFree thyroxine vyxpk5507-61-24 18:30:00* Test Item Value Reference Range Interpretation Comments Free Thyroxine Index (test code = 94644-1) 2.1556 1.4-3.[address] [facility], TXerum or plasma thyroxine (T4) measurement (mass/volume)2019-10-23 18:30:00* Test Item Value Reference Range Interpretation Comments Thyroxine (T4) (test code = 3026-2) 7.29 4.5-10.9 Our current method for Total T4 is not recommended for use as the only marker fo r evaluating patients for thyroid disorders.[facility], TXerum or plasma triiodothyronine resin uptake (T3RU)2019-10-23 18:30:00* Test Item Value Reference Range Interpretation Comments Triiodothyronine (T3) Uptake (test code = 3050-2) 29.57 22.5 -37.[address] [facility], TXerum or plasma thyrotropin measurement by detection limit <= 0.005 miu/l (units/volume)2019-10-23 18:30:00* Test Item Value Reference Range Interpretation Comments Thyroid Stimulating Hormone (TSH) (test code = 70738-8) 0.215 0.350-4.940 [facility] HospitalUrine color ijlvhrmcaatha6639-90-08 13:13:00* Test Item Value Reference Range Interpretation Comments Urine Color (test code = 5778-6) COLORLESS YELLOW [facility] HospitalUrine eekrase9106-89-00 13:13:00* Test Item Value Reference Range Interpretation Comments Urine Clarity (test code = 70387-7) CLEAR CLEAR [facility], TXpecific gravity of Urine by Test strip 2019-10-23 13:13:00* Test Item Value Reference Range Interpretation Comments Urine Specific [place] (test code = 5811-5) 1.010 1.010-1.02 5 [facility] HospitalUrine pH measurement by automated test jqdaf4558-15-10 13:13:00* Test Item Value Reference Range Interpretation Comments Urine pH (test code = 42986-3) 6.5 5-7 [facility] HospitalUrine leukocyte esterase detection by sbsplkmk9928-20-22 13:13:00* Test Item Value Reference Range Interpretation Comments Urine Leukocyte Esterase (test code = 5799-2) NEGATIVE NEGATIVE [facility] HospitalUrine nitrite kwrxkxvyl1899-93-56 13:13:00* Test Item Value Reference Range Interpretation Comments Urine Nitrite (test code = 08860-9) NEGATIVE NEGATIVE [facility] HospitalUrine protein measurement by test strip (mass/volume)2019-10-23 13:13:00* Test Item Value Reference Range Interpretation Comments Urine Protein (test code = 5804-0) NEGATIVE NEGATIVE [facility] HospitalUrine glucose wlcltulaw5311-35-34 13:13:00* Test Item Value Reference Range Interpretation Comments Urine Glucose (UA) (test code = 2349-9) NEGATIVE NEGATIVE [facility] HospitalUrine ketones detection by automated test kofuz8665-49-92 13:13:00* Test Item Value Reference Range Interpretation Comments Urine Ketones (test code = 91618-2) NEGATIVE NEGATIVE [facility] HospitalUrine urobilinogen measurement by test strip (mass/volume)2019-10-23 13:13:00* Test Item Value Reference Range Interpretation Comments Urine Urobilinogen (test code = 47440-4) 0.2 0.2-1 [facility] HospitalUrine total bilirubin measurement (mass/volume)2019-10-23 13:13:00* Test Item Value Reference Range Interpretation Comments Urine Bilirubin (test code = 1978-6) NEGATIVE NEGATIVE [facility] HospitalUrine erythrocytes cqjrlussc8641-24-42 13:13:00* Test Item Value Reference Range Interpretation Comments Urine Blood (test code = 79298-4) NEGATIVE NEGATIVE [facility] HospitalAutomated urine sediment leukocyte count by microscopy (number/high power field)2019-10-23 13:13:00* Test Item Value Reference Range Interpretation Comments Urine WBC (test code = 5821-4) NONE 0-5 [facility] HospitalErythrocytes detection in urine sediment by light umjlrjnngv4728-84-00 13:13:00* Test Item Value Reference Range Interpretation Comments Urine RBC (test code = 97725-5) 0-5 0-5 [facility] HospitalBacteria detection in urine sediment by light ahpwryrrpb2707-21-48 13:13:00* Test Item Value Reference Range Interpretation Comments Urine Bacteria (test code = 21619-7) RARE NONE [facility] HospitalEpithelial cells detection in urine sediment by light aloiypwjlz1401-32-22 13:13:00* Test Item Value Reference Range Interpretation Comments Urine Epithelial Cells (test code = 56741-5) FEW NONE [facility] HospitalRenal epithelial cells detection in urine sediment by light nxkdsutlqr8012-25-67 13:13:00* Test Item Value Reference Range Interpretation Comments Urine Renal Epithelial Cells (test code = 39408-7) RARE NON E [facility] HospitalCHEST SINGLE (PORTABLE)2019-10-23 10:50:00 [place] [address] Patient Name: CYNDIE MALDONADO MR #: [id number] : 1965 Age/Sex: 54/F Req #: [id number] Adm Physician: SHANAE HAN MD Ordered by: LETA VALDOVINOS DO Report #: [id number] Location: [facility] Room/Bed: [place] [address] Procedure: [id number] DX/CHEST SING LE (PORTABLE) Exam Date: 10/23/19 Exam Time: 934 REPORT STATUS: Signed EXAM: CHEST SINGLE (PORTABLE) DATE: 10/23/2019 9:48 AM INDICATION: Cough, fever COMPARISON: None FINDINGS: The trachea is midline. The lungs are sym metrically expanded without evidence for large focal consolidation, pneumothor ax, or significant pleural effusion. The cardiomediastinal silhouette and p ulmonary vasculature are within normal limits. No acute osseous abnormality is identified. The surrounding soft tissues are unremarkable. IMPRESSION : No acute cardiopulmonary process identified. Signed by: Dr. Dada rossi MD on 10/23/2019 10:50 AM Dictated By: DADA SIMMS MD Electronicall y Signed By: DADA SIMMS MD on 10/23/19 1050 Transcribed By: COLTON on 1050 COPY TO: LETA VALDOVINOS DO RBC efdldlqahv3783-68-59 09:00:00* Test Item Value Reference Range Interpretation Comments Red Cell Morphology Comment (test code = 6742-1) NORMAL [facility] HospitalActivated partial thromboplastin time (aPTT) in platelet poor plasma by coagulation chrnk1657-23-14 09:00:00* Test Item Value Reference Range Interpretation Comments Activated Partial Thromboplast Time (test code = 68196-5) 28.3 23.8-35.5 [facility] HospitalFluoroscopic procedure less than one hour rcwozmyy8955-29-71 09:00:00* Test Item Value Reference Range Interpretation Comments Lactic Acid Level (test code = Lactic Acid Level) 0.6 0.5- 2.[address] [facility], TXerum or plasma total bilirubin measurement (mass/volume)2019-10-23 09:00:00* Test Item Value Reference Range Interpretation Comments Total Bilirubin (test code = 1975-2) 0.3 0.2-1.2 [facility] HospitalFluoroscopic procedure less than one hour hqobtczu8627-99-20 09:00:00* Test Item Value Reference Range Interpretation Comments Aspartate Amino Transf (AST/SGOT) (test code = Aspartate Amino Transf (AST/SGOT)) 38 5-[address] [facility], TXerum or plasma alanine aminotransferase measurement (enzymatic activity/volume)2019-10-23 09:00:00* Test Item Value Reference Range Interpretation Comments Alanine Aminotransferase (ALT/SGPT) (test code = 1742-6) 37 0-[address] [facility], TXerum or plasma protein measurement (mass/volume)2019-10-23 09:00:00* Test Item Value Reference Range Interpretation Comments Total Protein (test code = 2885-2) 7.3 6.5-8.[address] [facility], TXerum or plasma albumin measurement (mass/volume)2019-10-23 09:00:00* Test Item Value Reference Range Interpretation Comments Albumin (test code = 1751-7) 4.3 3.5-5.0 [facility] HospitalPlasma globulin measurement (mass/volume) 2019-10-23 09:00:00* Test Item Value Reference Range Interpretation Comments Globulin (test code = 46941-2) 3.0 2.3-3.[address] [facility], TXerum or plasma albumin/globulin mass wiffq4561-78-78 09:00:00* Test Item Value Reference Range Interpretation Comments Albumin/Globulin Ratio (test code = 1759-0) 1.4 0.8-2.[address] [facility], TXerum or plasma alkaline phosphatase measurement (enzymatic activity/volume)2019-10-23 09:00:00* Test Item Value Reference Range Interpretation Comments Alkaline Phosphatase (test code = 6768-6) 97 40-150 [facility] HospitalBlood yiytnml7053-92-71 08:50:00* Test Item Value Reference Range Interpretation Comments Blood Culture (test code = 97994836) NO GROWTH AFTER 24 HOURS [facility] HospitalFluoroscopic procedure less than one hour hxzjdine0122-40-74 08:40:00* Test Item Value Reference Range Interpretation Comments Coronavirus (PCR) (test code = Coronavirus (PCR)) DETECTED NOTD ETECTED SARS-COV2/RT-PCRResults are for the detection of SARS-COV-2 RNA. The SARS-COV-2 RNA is generally detectable in nasopharyngeal swab specimens during the acute ph ase of infection. Positive results are indicitive of active infection with SARS- COV-2; clinical correlation with patient history and other diagnostic informatio n is necessary to determine patient infection status. Positive results do not ru le out bacterial infection or co-infection with other viruses. The agent detecte d may not be the definite cause of the disease.The limit of detection for this a ssay is 250 copies/mLThe SARS-CoV-2 test is a rapid, real-time RT-PCR test inten ded for the qualitative detection of nucleic acid from SARS-CoV-2 in nasopharyng eal swab specimen collected from individuals suspected of COVID-19 by their [facility] provider. This test has not been Food and Drug Administration (FDA) clear ed or approved and has been authorized by FDA under an Emergency Use Authorizati on (EUA). This EUA will be effective until the declaration that circumstances ex ist justifying the authorization of the emergency use of in vitro diagnostic hair t for detection and or diagnosis of COVID-19 is terminated under section 564(b) of the Act, or the the EUA is revoked under 564(g) of the ACT.Testing performed by [facility] [place] [address]GNZDriscoll Children's HospitalInfluenza Virus Types A,B Xdrqkoo8698-17-29 17:30:00* Test Item Value Reference Range Interpretation Comments Influenza Virus Types A,B Antigen (test code = 98153-0) POSITIVE FLU A NEGATIVE H Results called to Dr. Valdovinos at 1722 on 06/29/19 by Master Louise. MITALI ARGUELLO.Lacey berry called to Cherrie Johnston in infection control at 1722 on 06/29/19 by Master Louise.[facility] HospitalInfluenza virus A and B antigen identification by hvzujfhofzpkikwhre7601-31-28 15:16:00* Test Item Value Reference Range Interpretation Comments Influenza Virus Types A,B Antigen (test code = 51957-2) POSITIVE FLU A NEGATIVE Results called to Dr. Valdovinos at 1722 on 06/29/19 by Master Louise. RB [place].Lacey berry called to Cherrie Johnston in infection control at 1722 on 06/29/19 by Master Louise.[facility]
--- NOTE | 2019-10-26 13:55 | Emergency Department Note ---
History of Present Illnes History of Present Illness Chief Complaint: COVID PUI History of Present Illness This is a 54 year old female PATIENT IN FROM HOME WITH COMPLAINTS OF INCREASING SHORTNESS OF BREATH; STATES THAT SHE WAS DISCHARGED SUNDAY AND WAS COVID POSITIVE. Historian: Patient Arrival Mode: Car Public Address Announcer Required: No Location: LUNGS Quality: SOB Radiation: non-radiation Severity: moderate Onset quality: gradual Duration (how long): day(s) Timing of current episode: intermittent Progression: worsening Chronicity: new Context: recent illness (WENT TO [place] OVER , WENT TO [place], DIAGNOSED HERE 10/22 WITH COVID ADMITTED, DS/C'd ON 10/25/19, NOW WITH INCREASED SOB, SHE SAYS MAINLY BECAUSE SHE HAS TO DO HER OWN LAUNDRY AND IT MAKES HER FEEL MORE SOB) Relieving factors: none Exacerbating factors: none Associated symptoms: cough, fever/chills, shortness of breath, other (ACHY ALL OVER) Treatments prior to arrival: none Past Medical/Family History Physician Review I have reviewed the patient's past medical and family history. Any updates have been documented here. Past Medical History Recent Fever: No Clinical Suspicion of Infectio: No New/Unexplained Change in Ment: No Past Medical History: Chronic Back Pain Other Medical History: back and leg pain takes gabapentin Past Surgical History: None Other Surgery: eyes Social History Smoking Cessation: Never Smoker Counseling Performed: No Alcohol Use: None Any Illegal Drug Use: No TB Exposure/Symptoms: No Physically hurt or threatened: No Family History Family history of heart diseas: No Other Last Tetanus: UNKNOWN Any Pre-Existing Lines (PICC,: No Is patient up to date on immun: Yes Review of Systems Review of Systems Constitutional: chills, fever, malaise EENTM: no symptoms Cardiovascular: no symptoms Respiratory: cough, dyspnea, dyspnea on exertion Gastrointestinal: no symptoms Genitourinary: no symptoms Musculoskeletal: no symptoms Neurological: no symptoms Psychological: no symptoms Endocrine: no symptoms Hematological/Lymphatic: no symptoms Review of other systems All other systems reviewed and negative. Physical Exam Related Data Allergies: Coded Allergies: hydrocodone (Verified Allergy, Unknown, 10/26/19) Triage Vital Signs Vital Signs Date Time Temp Pulse Resp B/P (MAP) Pulse Ox O2 Delivery O2 Flow Rate FiO2 10/26/19 13:16 97.5 92 20 160/84 95 Vital signs reviewed: Yes Physical Exam CONSTITUTIONAL Constitutional: well-developed, well-nourished HENT HENT: normocephalic, atraumatic, oropharynx clear/moist, nose normal HENT L/R: left ext ear normal, right ext ear normal EYES Eyes: PERRL, conjunctivae normal NECK Neck: ROM normal PULMONARY Pulmonary: effort normal, breath sounds normal; respiratory distress, rales, rhonchi CARDIOVASCULAR Cardiovascular: regular rhythm, heart sounds normal, capillary refill normal, normal rate GASTROINTESTINAL Abdominal: soft, nontender, bowel sounds normal GENITOURINARY Genitourinary: exam deferred SKIN Skin: warm, dry MUSCULOSKELETAL Musculoskeletal: ROM normal NEUROLOGICAL Neurological: alert, oriented x 3, no gross motor or sensory deficits PSYCHOLOGICAL Psychological: mood/affect normal, judgement normal Critical Care Time Subsequent provider I assumed direction of critical care for this patient from another provider of my specialty. Assessment & Plan Reassessment Reassessment PT'S O2 SAT IS 100% ON RA WHILE I WAS IN ROOM. I ALSO HAD PT MARCH IN PLACE FOR 1 MINUTE AND SHE REMAINED AT 100% THE ENTIRE TIME AND AFTERWARD. WILL DC HOME (I D/W DR BERNABE AND HE AGREES), I DISCUSSED SELF-QUARANTINE AND PRONING WITH PT AND SX'S TO WATCH OUT FOR, F/U PCP Assessment & Plan Final Impression: (1) COVID-19 (2) DYSPNEA, UNSPECIFIED Assessment & Plan DC HOME Depart Disposition: HOME, SELF-CARE Last Vital Signs Date Time Temp Pulse Resp B/P (MAP) Pulse Ox O2 Delivery O2 Flow Rate FiO2 10/26/19 13:16 97.5 92 20 160/84 95 Home Meds Active Scripts Acetaminophen With Codeine (TYLENOL WITH CODEINE #3 TABLET) 1 Each Tablet, 300 MG PO Q6HR PRN for COUGH, #12 TAB Prov:LETA VALDOVINOS, 06/29/19 Reported Medications Cephalexin Monohydrate (KEFLEX) 500 Mg Capsule, 500 MG PO TID for 5 Days 10/24/19 Azithromycin (Z-JONE) 250 Mg Tablet, 250 MG PO UD, #1 UDPKT Z-Pack 10/24/19 Discontinued Scripts Oseltamivir Phosphate (TAMIFLU) 75 Mg Cap, 75 MG PO BID for 5 Days, CAP Prov:LETA VALDOVINOS, DO 06/29/19 MEAGHAN WHALEN MD Oct 26, 2019 13:54
== END 2019-10-26 14:14 | disposition home or self-care (01) ==
LOC: ER 13:14
DX: R06.00 Dyspnea, unspecified (principal); U07.1 COVID-19
CPT/HCPCS: 99282

== ENCOUNTER 2021-05-23 17:43 | Emergency (ER) | payer OTHER ==
[~2021-05-23] VITALS: Ht 165.1 cm; Wt 66.2 kg
[2021-05-23] MEDS ORDERED: IBUPROFEN600 MG PO (18:37)
[2021-05-23] MEDS ORDERED: ONDANSETRON ODT4 MG PO (18:37)
== END 2021-05-23 18:41 | disposition home or self-care (01) ==
LOC: ER 17:47
DX: U07.1 COVID-19 (principal); R50.9 Fever, unspecified; R05.9 Cough, unspecified; M54.9 Dorsalgia, unspecified; G89.29 Other chronic pain
CPT/HCPCS: 99282; U0002